=== PATIENT | female | born 1955 | race Caucasian/White ===

== ENCOUNTER → 2016-12-10 | Outpatient (CLI) | payer OTHER ==
--- NOTE | 2016-12-10 11:45 | EKG ---
[address] [address] Measurements Intervals [place] Rate: 56 P: 76 HI: 134 QRS: 92 QRSD: 85 T: 70 QT: 398 QTc: 389 Interpretive Statements SINUS RHYTHM BORDERLINE RIGHT AXIS DEVIATION [QRS AXIS > 90] Compared to ECG 09/26/2014 10:26:43 Short HI interval no longer present Electronically Signed On 12-10-16 15:55:14 [facility] by Darryn Saleh [id number]
== END ==
LOC: MOB LAB 11:30
PROVIDERS: ATTEND Specialist
DX: R00.2 Palpitations (principal)
CPT/HCPCS: 93005; 93010

== ENCOUNTER → 2016-12-13 | Outpatient (CLI) | payer OTHER ==
--- NOTE | 2016-12-17 16:47 | HOLTER ---
[facility] [place] Interpretive Statements All symptoms noticed are mild, vague, uneasiness, palpitations or chest pressure, Forty eight hour holter monitor done for palpitations and chest pressure. There were 159,330 total beats with 10,345 PACs,10,178 singlets, with 50 pairs and 17 brief runs up to rate of 191. Frequent atrial bigeminey and trigeminey were noted and possible brief atrial flutter although significant artifact was seen in these tracings. No ventricular ectopy was noted or significant pauses. The maximum sinus rate was 129 with minimum rate of 36 with sleep and average rate of 67. Possible atrial flutter rate was 150s with brief SVT to max rate of 190. The patient noted chest pressure or palpitations with isolated PACs but more frequently with atrial bigeminey or trigeminey and occassionaly with sinus rhythm. Left chest discomfort with left arm pain was noted while exercising on the treadmill to heart rates in the 130s with nondiagnostic upsloping ST depression which was also seen with episodic tachycardia. Rhythm strips labeled atrial fibrillation showed only sinus rhythm. IMP: Abnormal holter study with frequent symptoms of palpitations and chest pressure seen atrial ectopy but ocassionally with sinus rhythm. There was frequent atrial bigeminey and trigeminey with brief runs of SVT to rates up to 190. Two runs of atrial flutter are suspected however significant artifact was present in those strips. Chest and arm discomfort was noted with increased heart rate associated with nondiagnostic ST depression. No ventricular ectopy was seen and no significant bradycardia or pauses. Stress testing should be considered. Electronically Signed On 12-18-16 13:29:11 [facility] by Darryn Saleh [id number]
== END ==
LOC: RT 15:16
PROVIDERS: ATTEND Specialist
DX: R00.2 Palpitations (principal)
CPT/HCPCS: 93225; 93226; 93227

== ENCOUNTER → 2016-12-27 | Outpatient (CLI) | payer OTHER ==
--- NOTE | 2016-12-27 09:33 | STRESSTEST ---
[facility] Interpretive Statements This 61 y.o. female with Hx of MVP and some months of increased palpitations and recent atypical chest pains is referred by Dr. Saleh for stress test. There are really no risk factors for CAD other than elderly grandparents with strokes. A prior Holter showed mostly singlet but frequent atrial ectopics (10K out of 130K). An echo has been done. She was able to attain 10 METs and over 90% PMHR with beat to beat variable ST depression inferiorly suspected mostly artifactual and/or with aberrancy immediately resolved at rest. There was mild chest discomfort mid-exercise but no clear SVT or any PVCs. There was very high cardiopulmonary fitness with HR below 100 in 1 minute rest. IMPRESSION: Indeterminate maximal ETT with non-SVT atrial ectopy and atypical for ischemia ST changes. [id number]
== END ==
LOC: EKG 07:46
PROVIDERS: ATTEND Specialist
DX: I49.49 Other premature depolarization (principal)
CPT/HCPCS: 93016; 93017; 93018